=== PATIENT | female | born 1950 | race Caucasian/White ===

== ENCOUNTER → 2018-05-19 | Outpatient (CLI) | payer BC, MEDICARE ==
[~2018-05-19] MED LIST: GLIPIZIDE10 MG PO; MICARDIS20 MG PO; TRIAMTERENE PO; remicade
--- NOTE | 2018-05-19 12:46 | Diagnostic Imaging Report ---
TECHNIQUE: Magnetic resonance imaging of the RIGHT SHOULDER was performed WITHOUT injected contrast. Suboptimal ttfnwe-ia-eynfx ratio, likely secondary to body habitus. Motion artifact further limits sensitivity and specificity of the exam. HISTORY: Pain, fell, limited motion COMPARISON: None available. FINDINGS: MUSCLES AND TENDONS: Rotator Cuff: Tendons: Supraspinatus and Infraspinatus: Probable full-thickness tear, the high-grade to full-thickness component measures approximately 3.5 cm (ML) x 3.1 cm (AP). Teres Minor: Intact Subscapularis: Intrasubstance degeneration and distal low-grade partial-thickness tearing. Muscles: Diffuse muscle atrophy, most notably moderate of the supraspinatus and infraspinatus. Biceps Tendon: The long head of the biceps tendon is not visualized within the intertubercular groove, there may be a small residual stump of tissue attached to the glenoid tubercle. GLENOHUMERAL JOINT: Glenoid Labrum: Diffuse contour irregularity, most notably the superior labrum. Articular Cartilage: Low-grade erosion. Joint Fluid: Synovitis and moderate nonspecific effusion extending into the subacromial/subdeltoid bursa. ACROMIOCLAVICULAR JOINT: Moderate hypertrophic degenerative changes of the acromioclavicular joint. Synovitis and trace effusion. BONE: Remodeling of the undersurface of the acromion. Superior subluxation of the humeral head into the rotator cuff defect. The bone marrow signal is heterogeneous, compatible with red marrow conversion, no specific evidence of a focal bone marrow replacing abnormality. No acute fracture. Mild nonspecific bone marrow edema at the posterior aspect of the humeral head. SOFT TISSUES: Otherwise, unremarkable. IMPRESSION: 1. Chronic full-thickness supraspinatus and infraspinatus tear. 2. Tendinosis and partial-thickness tearing of the subscapularis tendon. 3. Suspected proximal rupture and distal retraction of the long head of the biceps tendon. 4. Degenerative changes of the acromioclavicular and glenohumeral joints, including degenerative tearing of the glenoid labrum. 5. Exam limitations, as detailed above. Signed by: Dr. Ed Yang D.O., M.M.M. on 05/19/2018 12:42 PM
== END ==
LOC: MRI 09:27
PROVIDERS: ATTEND Internal Medicine Rheumatology
DX: M25.511 Pain in right shoulder (principal)

== ENCOUNTER → 2019-02-28 | Day surgery (SDC) | payer MEDICARE, BC ==
[2019-02-22 12:29] LABS: BASOPHILS # (AUTO) 0.1 (0.0-0.1); BASOPHILS % 0.7 % (0.0-1.0); EOSINOPHILS # (AUTO) 0.2 (0.0-0.4); EOSINOPHILS % 2.8 % (0.0-6.0); HEMOGLOBIN 12.3 g/dL (12.0-16.0); LYMPHOCYTES # (AUTO) 3.3 (1.0-3.2); MEAN CORPUSCULAR HEMOGLOBIN 31.1 pg (28-32); MEAN CORPUSCULAR HGB CONC 32.4 g/dL (31-35); MEAN CORPUSCULAR VOLUME 96.2 fL (81-99); MONOCYTES # (AUTO) 0.5 (0.2-0.8); MONOCYTES % 6.5 % (4.4-11.3); NEUTROPHILS % 48.6 % (38.7-80.0); PLATELET COUNT 184 x10e3/uL (140-360); RED BLOOD COUNT 3.95 x10e6/uL (3.6-5.1)
[~2019-02-28] MED LIST changes: +ALPRAZOLAM1 MG PO; +CITALOPRAM HBR40 MG PO; +FOLIC ACID PO; +METFORMIN HCL850 MG PO; +METHOTREXATE2.5 MG PO; +PROPOFOL IV EMULSION 10 MG/ML 50 ML VIAL ONE; +QUESTRAN PACKET4 GM PO; +WARFARIN SODIUM5 MG PO; +ZOLPIDEM TARTRA10 MG PO
--- OUTSIDE RECORDS SUMMARY | 2019-02-28 10:26 | XMS REPORT ---
Author [facility] Address Unknown Phone Unavailable Care Team Providers Care Grass Cutter Name Role Phone WALTER LIN Unavailable Unavailable Payers Payer Name Policy Type Policy Number Effective Date Expiration Date Problems This patient has no known problems. Allergies, Adverse Reactions, Alerts Allergy Name Allergy Type Status Severity Reaction(s) Onset Date Inactive Date Treating Clinician Comments No Known Drug Allergies DA Active U 2018-08-19 00:00:00 No Known Drug Allergies DA Active U 2018-07-20 00:00:00 No Known Allergies DA Active U 2012-04-06 00:00:00 Medications This patient has no known medications. Results Test Description Test Time Test Comments Text Results Atomic Results Result Comments PROTHROMBIN TIME 2018-08-23 07:17:00 PROTHROMBIN TIME PATIENT (test code=PTP) 13 secs 10.1-12.5 INTERNATIONAL NORMAL RATIO (test code=INR) 1.15 <2.0 RECOMMENDED THERAPEUTIC RANGE FOR ORAL ANTICOAGULANTTREATMENT: CONDITION INRProphylaxis of venous thrombosis in 2.0 - 3.0 high-risk medical or surgical patientsTreatment of venous thrombosis 2.0 - 3.0Prevention of embolism 2.0 - 3.0Prevention of recurrent embolism, or 3.0 - 4.5 patients with mechanical prosthetic intravascular valves IS PATIENT ON ANTICOAGULANTS ? YLIST ANTICOAGULANT/ANTI PLT MEDICATION : Coumadi nHas Lab been notified if Patient is on Heparin Drip? NOIf Yes, order CBC, OCCUL T BLOOD, PT every other day NTHROMBOPLASTIN TIME [id number] 07:17:00* Test Item Value Reference Range Comments PTT ACTIVATED (test code=APTT) 28.9 secs 24.9-37.0 IS PATIENT ON ANTICOAGULANTS ? YLIST ANTICOAGULANT/ANTI PLT MEDICATION : Coumadi nHas Lab been notified if Patient is on Heparin Drip? NOIf Yes, order CBC, OCCUL T BLOOD, PT every other day [id number] 06:56:00* Test Item Value Reference Range Comments GLUBED (test code=GLUBED) 124 mg/dL 60-125 BASIC METABOLIC [id number] 13:11:00* Test Item Value Reference Range Comments SODIUM (test code=NA) 138 mmol/L 136-145 POTASSIUM (test code=K) 4.5 mmol/L 3.5-5.1 CHLORIDE (test code=CL) 101.0 mmol/L 98-107 CARBON DIOXIDE (test code=CO2) 27.0 mmol/L 21-32 GLUCOSE (test code=GLU) 75 mg/dL 70-110 BLOOD UREA NITROGEN (test code=BUN) 13 mg/dL 7-18 GLOMERULAR FILTRATION RATE (test code=GFR) 64.3 >60 Unit of measure: mL/min/1.73 [id number] Range:Healthy Adults >90 mL/min/1.73 m2 For Chronic Kidney Disease: Stage II Mild Decrease in GFR 60-90 Stage III Moderate Decrease in GFR 30-59 Stage IV Severe Decrease in GFR 15-29 Stage V Kidney Failure <15 CREATININE (test code=CREAT) 0.88 mg/dL 0.55-1.30 CALCIUM (test code=CA) 9.1 mg/dL 8.2-10.1 HGB [id number] 12:43:00* Test Item Value Reference Range Comments HEMOGLOBIN (test code=HGB) 12.5 g/dL 12-16 HEMATOCRIT (test code=HCT) 38.6 % 37-47 PROTHROMBIN [id number] 10:08:00* Test Item Value Reference Range Comments PROTHROMBIN TIME PATIENT (test code=PTP) 12.7 secs 10.1-12.5 INTERNATIONAL NORMAL RATIO (test code=INR) 1.12 <2.0 RECOMMENDED THERAPEUTIC RANGE FOR ORAL ANTICOAGULANTTREATMENT: CONDITION INRProphylaxis of venous thrombosis in 2.0 - 3.0 high-risk medical or surgical patientsTreatment of venous thrombosis 2.0 - 3.0Prevention of embolism 2.0 - 3.0Prevention of recurrent embolism, or 3.0 - 4.5 patients with mechanical prosthetic intravascular valves IS PATIENT ON ANTICOAGULANTS ? YLIST ANTICOAGULANT/ANTI PLT MEDICATION : OtherHa s Lab been notified if Patient is on Heparin Drip? NOIf Yes, order CBC, OCCULT B LOOD, PT every other day NTHROMBOPLASTIN TIME [id number] 10:08:00* Test Item Value Reference Range Comments PTT ACTIVATED (test code=APTT) 31.1 secs 24.9-37.0 IS PATIENT ON ANTICOAGULANTS ? YLIST ANTICOAGULANT/ANTI PLT MEDICATION : OtherHa s Lab been notified if Patient is on Heparin Drip? NOIf Yes, order CBC, OCCULT B LOOD, PT every other day NBASIC METABOLIC [id number] 13:21:00* Test Item Value Reference Range Comments SODIUM (test code=NA) 135 mmol/L 136-145 POTASSIUM (test code=K) 3.9 mmol/L 3.5-5.1 CHLORIDE (test code=CL) 99.0 mmol/L 98-107 CARBON DIOXIDE (test code=CO2) 23.0 mmol/L 21-32 GLUCOSE (test code=GLU) 220 mg/dL 70-110 BLOOD UREA NITROGEN (test code=BUN) 16 mg/dL 7-18 GLOMERULAR FILTRATION RATE (test code=GFR) 60.3 >60 Unit of measure: mL/min/1.73 [id number] Range:Healthy Adults >90 mL/min/1.73 m2 For Chronic Kidney Disease: Stage II Mild Decrease in GFR 60-90 Stage III Moderate Decrease in GFR 30-59 Stage IV Severe Decrease in GFR 15-29 Stage V Kidney Failure <15 CREATININE (test code=CREAT) 0.93 mg/dL 0.55-1.30 CALCIUM (test code=CA) 8.7 mg/dL 8.2-10.1 HGB [id number] 12:30:00* Test Item Value Reference Range Comments HEMOGLOBIN (test code=HGB) 12.3 g/dL 12-16 HEMATOCRIT (test code=HCT) 37.5 % 37-47 MRI SHOULDER RIGHT [id number] 12:20:00 [facility] [address] [place] [id number] Patient Name: GUERO MENDEZ MR #: [id number] : 1950 Age/Sex: 67/F Acc #: [id number] Req #: [id number] [facility] Physician: Ordered by: WALTER LIN Report #: [id number] Location: MRI Room/Bed: Procedure: [id number] MRI/MRI SHOULDER RIGHT WO Exam Date: 05/19/18 Exam Time: 10 15 REPORT STATUS: Signed TECHNIQ UE: Magnetic resonance imaging of the RIGHT SHOULDER was performed WITHOUT inj ected contrast. Suboptimal oymbrz-wp-ukrnh ratio, likely secondary to body habitus. Motion artifact further limits sensitivity and specificity of the exa m. HISTORY: Pain, fell, limited motion COMPARISON: None available. FINDINGS: MUSCLES AND TENDONS: Rotator Cuff: Tendons: Supraspinatus a nd Infraspinatus: Probable full-thickness tear, the high-grade to full-thickn ess component measures approximately 3.5 cm (ML) x 3.1 cm (AP). Teres Minor: Intact Subscapularis: Intrasubstance degeneration and distal low-grade par tial-thickness tearing. Muscles: Diffuse muscle atrophy, most notably modera te of the supraspinatus and infraspinatus. Biceps Tendon: The long he ad of the biceps tendon is not visualized within the intertubercular groove, t here may be a small residual stump of tissue attached to the glenoid tubercle. GLENOHUMERAL JOINT: Glenoid Labrum: Diffuse contour irregularity, most notably the superior labrum. Articular Cartilage: Low-grade erosion. Join t Fluid: Synovitis and moderate nonspecific effusion extending into the subacr omial/subdeltoid bursa. ACROMIOCLAVICULAR JOINT: Moderate hypertrophic degenerative changes of the acromioclavicular joint. Synovitis and trace effus ion. BONE: Remodeling of the undersurface of the acromion. Superior gaona bluxation of the humeral head into the rotator cuff defect. The bone marrow si gnal is heterogeneous, compatible with red marrow conversion, no specific evid ence of a focal bone marrow replacing abnormality. No acute fracture. Mild nonspecific bone marrow edema at the posterior aspect of the humeral head. SOFT TISSUES: Otherwise, unremarkable. IMPRESSION: 1. Chronic f ull-thickness supraspinatus and infraspinatus tear. 2. Tendinosis and partial -thickness tearing of the subscapularis tendon. 3. Suspected proximal rupture and distal retraction of the long head of the biceps tendon. 4. Degenerati ve changes of the acromioclavicular and glenohumeral joints, including degener ative tearing of the glenoid labrum. 5. Exam limitations, as detailed above. Signed by: Dr. Eliceo Yang D.O., M.M.M. on 05/19/2018 12:42 PM Dictat ed By: ELICEO YANG DO 1242 Transcribed By: WESTON on 05/19/18 1242 COPY TO: WALTER LIN
[2019-02-28 11:19] LABS: INR 1.04; PROTHROMBIN TIME 14.1 seconds (11.9-14.5)
[2019-02-28 11:20] LABS: PARTIAL THROMBOPLASTIN TIME 39.4 seconds (23.8-35.5)
[2019-02-28 13:00] VITALS: BP 173/81
== END | disposition home or self-care (01) ==
LOC: OR 10:18
PROVIDERS: ATTEND Internal Medicine Gastroenterology
DX: Z12.11 Encounter for screening for malignant neoplasm of colon (principal); K58.9 Irritable bowel syndrome, unspecified; K63.89 Other specified diseases of intestine; R19.7 Diarrhea, unspecified; K57.30 Diverticulosis of large intestine without perforation or abscess without bleeding; R14.0 Abdominal distension (gaseous); K64.0 First degree hemorrhoids; R03.0 Elevated blood-pressure reading, without diagnosis of hypertension; M06.9 Rheumatoid arthritis, unspecified; E03.9 Hypothyroidism, unspecified; E66.01 Morbid (severe) obesity due to excess calories; E11.9 Type 2 diabetes mellitus without complications; F32.9 Major depressive disorder, single episode, unspecified; F41.9 Anxiety disorder, unspecified; Z01.810 Encounter for preprocedural cardiovascular examination; Z01.812 Encounter for preprocedural laboratory examination; Z79.01 Long term (current) use of anticoagulants; Z79.84 Long term (current) use of oral hypoglycemic drugs; Z68.37 Body mass index [BMI] 37.0-37.9, adult; Z86.73 Personal history of transient ischemic attack (TIA), and cerebral infarction without residual deficits; Z80.0 Family history of malignant neoplasm of digestive organs
CPT/HCPCS: 36415 ×2; 45380; 82948; 85025; 85610; 85730; 88305; 93005; J2704

== ENCOUNTER → 2020-02-01 | Outpatient (CLI) | payer MEDICARE, BC ==
[~2020-02-01] MED LIST changes: -PROPOFOL IV EMULSION 10 MG/ML 50 ML VIAL ONE
== END ==
LOC: CT 14:53
PROVIDERS: ATTEND Specialist
DX: M25.561 Pain in right knee (principal)

== ENCOUNTER → 2020-08-30 | Day surgery (SDC) | payer MEDICARE, BC ==
[2020-08-27 13:05] LABS: BASOPHILS # (AUTO) 0.1 (0.0-0.1); BASOPHILS % 0.8 % (0.0-1.0); EOSINOPHILS # (AUTO) 0.5 (0.0-0.4); EOSINOPHILS % 5.9 % (0.0-6.0); HEMATOCRIT 37.2 % (34.2-44.1); HEMOGLOBIN 12.4 g/dL (12.0-16.0); LYMPHOCYTES # (AUTO) 3.8 (1.0-3.2); LYMPHOCYTES % 43.5 % (18.0-39.1); MEAN CORPUSCULAR HEMOGLOBIN 34.6 pg (28-32); MEAN CORPUSCULAR HGB CONC 33.3 g/dL (31-35); MEAN CORPUSCULAR VOLUME 103.9 fL (81-99); MONOCYTES # (AUTO) 0.5 (0.2-0.8); MONOCYTES % 5.6 % (4.4-11.3); NEUTROPHILS # (AUTO) 3.8 (2.1-6.9); NEUTROPHILS % 43.7 % (38.7-80.0); PLATELET COUNT 247 x10e3/uL (140-360); RED BLOOD COUNT 3.58 x10e6/uL (3.6-5.1); RED CELL DISTRIBUTION WIDTH 14.1 % (11.7-14.4)
[~2020-08-30] MED LIST changes: +ATENOLOL50 MG PO; +CETIRIZINE HCL10 MG PO; +FENTANYL CITRATE/PF 100MCG/2 ML INJ ONE; +IOPAMIDOL 200 MG/ML 20 ML VIAL IT ONE; +KLONOPIN0.5 MG PO; +LIDOCAINE HCL 1% 30ML-PF VIAL ONE; +LIDOCAINE HCL 2% LOCAL INJ 5 ML SDV VIAL INJ ONE; +LIPITOR10 MG PO; +METOPROLOL SUCC50 MG PO; +MIDAZOLAM HCL 2 MG/2 ML VIAL ONE; +NAMENDA5 MG PO; +NIFEDIPINE ER30 M1 PO; +POVIDONE IODINE 0.05% 0.05 % ML PO ONE; +PRAMIPEXOLE D0.25 MG PO; +PROPOFOL IV EMULSION 10 MG/ML 20 ML VIAL ONE; +RANEXA500 MG PO; +TRIAMCINOLONE ACET 40 MG/ML VIAL ONE; +ULTRAM 50MG50 MG PO; +VITAMIN B-121000 MC2 PO
[2020-08-30 08:10] VITALS: BP 114/64
== END | disposition home or self-care (01) ==
LOC: OR 15:12
PROVIDERS: ATTEND Physical Medicine & Rehabilitation Pain Medicine
DX: M47.896 Other spondylosis, lumbar region (principal); Z01.812 Encounter for preprocedural laboratory examination; Z01.810 Encounter for preprocedural cardiovascular examination; Z20.822 Contact with and (suspected) exposure to COVID-19; E11.9 Type 2 diabetes mellitus without complications; I25.10 Atherosclerotic heart disease of native coronary artery without angina pectoris; I10 Essential (primary) hypertension; Z95.2 Presence of prosthetic heart valve
CPT/HCPCS: 36415 ×2; 64493; 64494; 64495; 77003; 82948; 85025; 93005; J2001 ×2; J2250; J2704; J3010; J3301; Q9967; U0002

== ENCOUNTER → 2020-10-11 | Day surgery (SDC) | payer MEDICARE, BC ==
[~2020-10-11] MED LIST changes: -FENTANYL CITRATE/PF 100MCG/2 ML INJ ONE; +IOPAMIDOL 300 MG/ML 15ML VIAL IT ONE; -LIDOCAINE HCL 1% 30ML-PF VIAL ONE; -MIDAZOLAM HCL 2 MG/2 ML VIAL ONE; -POVIDONE IODINE 0.05% 0.05 % ML PO ONE; -PROPOFOL IV EMULSION 10 MG/ML 20 ML VIAL ONE
[2020-10-11 07:29] LABS: INR 1.63; PROTHROMBIN TIME 20.2 seconds (11.9-14.5)
[2020-10-11 07:30] LABS: PARTIAL THROMBOPLASTIN TIME 51.5 seconds (23.8-35.5)
[2020-10-11 08:25] VITALS: BP 147/56
== END | disposition home or self-care (01) ==
LOC: OR 05:54
PROVIDERS: ATTEND Physical Medicine & Rehabilitation Pain Medicine
DX: M17.11 Unilateral primary osteoarthritis, right knee (principal); M47.898 Other spondylosis, sacral and sacrococcygeal region; G47.33 Obstructive sleep apnea (adult) (pediatric); E11.9 Type 2 diabetes mellitus without complications; I25.10 Atherosclerotic heart disease of native coronary artery without angina pectoris; I10 Essential (primary) hypertension; Z01.812 Encounter for preprocedural laboratory examination; Z20.822 Contact with and (suspected) exposure to COVID-19; Z79.84 Long term (current) use of oral hypoglycemic drugs; Z79.01 Long term (current) use of anticoagulants; Z68.35 Body mass index [BMI] 35.0-35.9, adult; Z91.81 History of falling
CPT/HCPCS: 20610; 36415; 77002; 82948; 85610; 85730; J2001; J3301; Q9967 ×2; U0002

== ENCOUNTER 2021-02-05 14:04 | Inpatient (IN) | payer BC, MEDICARE ==
[~2021-02-05] VITALS: Ht 160 cm; Wt 67.6 kg
[~2021-02-05 14:04] MED LIST changes: -IOPAMIDOL 200 MG/ML 20 ML VIAL IT ONE; -IOPAMIDOL 300 MG/ML 15ML VIAL IT ONE; -LIDOCAINE HCL 2% LOCAL INJ 5 ML SDV VIAL INJ ONE; -TRIAMCINOLONE ACET 40 MG/ML VIAL ONE
[2021-02-05 15:20] LABS: BASOPHILS % 0.4 % (0.0-1.0); EOSINOPHILS % 0.2 % (0.0-6.0); HEMATOCRIT 27.1 % (34.2-44.1); HEMOGLOBIN 8.6 g/dL (12.0-16.0); LYMPHOCYTES # (AUTO) 1.7 (1.0-3.2); LYMPHOCYTES % 20.8 % (18.0-39.1); MEAN CORPUSCULAR HEMOGLOBIN 34.7 pg (28-32); MEAN CORPUSCULAR HGB CONC 31.7 g/dL (31-35); MEAN CORPUSCULAR VOLUME 109.3 fL (81-99); MONOCYTES # (AUTO) 0.8 (0.2-0.8); MONOCYTES % 9.3 % (4.4-11.3); NEUTROPHILS # (AUTO) 5.5 (2.1-6.9); NEUTROPHILS % 67.3 % (38.7-80.0); PLATELET COUNT 383 x10e3/uL (140-360); RED BLOOD COUNT 2.48 x10e6/uL (3.6-5.1); RED CELL DISTRIBUTION WIDTH 16.5 % (11.7-14.4)
[2021-02-05 15:26] LABS: CLARITY,URINE HAZY (CLEAR); COLOR,URINE BROWN (YELLOW); KETONES,URINE 2+ (NEGATIVE); LEUKOCYTE ESTERASE ,URINE MODERATE (NEGATIVE); NITRITE,URINE POSITIVE (NEGATIVE); PROTEIN,URINE DIPSTICK 1+ (NEGATIVE); URINE UROBILINOGEN 0.2 mg/dL (0.2 - 1)
[2021-02-05 15:35] LABS: AMORPHOUS SEDIMENT,URINE MODERATE (FEW); BACTERIA,URINE MANY /HPF; EPITHELIAL CELLS,URINE FEW /LPF; WBC,URINE (MAN) 21-50 /HPF (0-5)
[2021-02-05 15:36] LABS: INR 3.21; PROTHROMBIN TIME 34.3 seconds (11.9-14.5)
[2021-02-05 15:42] LABS: ALBUMIN 2.6 g/dL (3.5-5.0); ALBUMIN/GLOBULIN RATIO 0.8 (0.8-2.0); ANION GAP 16.8 mmol/L (8-16); CALCIUM 7.9 mg/dL (8.4-10.2); CREATININE, SERUM 0.68 mg/dL (0.57-1.11); POTASSIUM 3.8 mmol/L (3.5-5.1)
[2021-02-05] MEDS ORDERED: CEFTRIAXONE 1 GM in SODIUM CHLORIDE 0.9% 50ML 50 ML IV ONE (16:00)
[2021-02-05] MEDS ORDERED: CEFTRIAXONE 500 MG VIAL IV ONE (16:00)
[2021-02-05 16:18] LABS: THYROID STIMULATING HORMONE 1.416 uIU/mL (0.350-4.940)
[2021-02-05 17:59] VITALS: BP 118/59
[2021-02-05 18:19] VITALS: BP 118/59
[2021-02-05] MEDS ORDERED: MEMANTINE HCL10 MG PO (19:56)
[2021-02-05] MEDS ORDERED: ATORVASTATIN CA20 MG PO (19:56)
[2021-02-05] MEDS ORDERED: TELMISARTAN80 MG PO (19:56)
[2021-02-05] MEDS ORDERED: WARFARIN SODIU2.5 MG PO (19:56)
[2021-02-05] MEDS ORDERED: CITALOPRAM HBR40 MG PO (19:56)
[2021-02-05] MEDS ORDERED: NIFEDIPINE ER90 MG PO (19:56)
[2021-02-05] MEDS ORDERED: XANAX0.5 MG PO (19:58)
[2021-02-05 20:00] VITALS: BP 127/50
[2021-02-05] MEDS ORDERED: CALCIUM CARBONATE 500 MG CHEWABLE TABS PO PRN (20:15)
[2021-02-05] MEDS: ATENOLOL 50 MG TAB PO SCH (20:34)
[2021-02-05] MEDS: ATORVASTATIN 20 MG TAB PO SCH (20:34)
[2021-02-05] MEDS: PRAMIPEXOLE DIHYDROCHLORIDE 0.25 MG TAB PO SCH (20:34)
[2021-02-05] MEDS: MEMANTINE 10 MG TAB PO SCH (20:34)
[2021-02-05] MEDS: ALPRAZOLAM 0.5 MG TAB PO SCH (20:35)
[2021-02-05 21:00] VITALS: BP 127/50
[2021-02-05] MEDS ORDERED: CITALOPRAM HYDROBROMIDE 20 MG TAB PO SCH (21:00)
[2021-02-05 23:54] VITALS: BP 122/59
[2021-02-06] VITALS (7 sets, daily range): BP systolic 103–124; BP diastolic 54–64
[2021-02-06] MEDS: MEMANTINE 10 MG TAB PO SCH ×2 (10:00→20:42)
[2021-02-06] MEDS: CITALOPRAM HYDROBROMIDE 20 MG TAB PO SCH (10:00)
[2021-02-06 10:31] LABS: THYROID STIMULATING HORMONE 1.792 uIU/mL (0.350-4.940)
[2021-02-06] MEDS ORDERED: SODIUM CHLORIDE 0.9% 50ML 50 ML ONE (10:35)
[2021-02-06] MEDS ORDERED: IOPAMIDOL 370 MG/ML 200 ML INFUS..BTL INJ ONE (10:35)
[2021-02-06] MEDS: ACETAMINOPHEN 325 MG TAB PO PRN ×2 (13:50→20:43)
[2021-02-06] MEDS ORDERED: SODIUM CHLORIDE 0.9% 250ML 250 ML ONE (16:32)
[2021-02-06] MEDS: CEFTRIAXONE 1 GM in SODIUM CHLORIDE 0.9% 50ML 50 ML IV SCH (17:25)
[2021-02-06] MEDS: PRAMIPEXOLE DIHYDROCHLORIDE 0.25 MG TAB PO SCH (20:42)
[2021-02-06] MEDS: ATORVASTATIN 20 MG TAB PO SCH (20:42)
[2021-02-06] MEDS: MIRTAZAPINE 15 MG TAB PO SCH (20:42)
[2021-02-06] MEDS: ATENOLOL 50 MG TAB PO SCH (20:43)
[2021-02-06] MEDS: ALPRAZOLAM 0.5 MG TAB PO SCH (20:43)
[2021-02-07] VITALS: BP 98/54
[2021-02-07 05:19] VITALS: BP 131/56
[2021-02-07 06:25] LABS: BASOPHILS % 0.6 % (0.0-1.0); EOSINOPHILS # (AUTO) 0.1 (0.0-0.4); EOSINOPHILS % 1.6 % (0.0-6.0); HEMOGLOBIN 8.1 g/dL (12.0-16.0); LYMPHOCYTES # (AUTO) 2.1 (1.0-3.2); LYMPHOCYTES % 43.9 % (18.0-39.1); MEAN CORPUSCULAR HEMOGLOBIN 34.6 pg (28-32); MEAN CORPUSCULAR HGB CONC 32.4 g/dL (31-35); MEAN CORPUSCULAR VOLUME 106.8 fL (81-99); MONOCYTES # (AUTO) 0.7 (0.2-0.8); MONOCYTES % 13.6 % (4.4-11.3); NEUTROPHILS # (AUTO) 1.7 (2.1-6.9); NEUTROPHILS % 35.8 % (38.7-80.0); PLATELET COUNT 295 x10e3/uL (140-360); RED BLOOD COUNT 2.34 x10e6/uL (3.6-5.1); RED CELL DISTRIBUTION WIDTH 16.8 % (11.7-14.4)
[2021-02-07 06:27] LABS: INR 1.81; PROTHROMBIN TIME 22.4 seconds (11.9-14.5)
[2021-02-07 06:48] LABS: ANION GAP 14.1 mmol/L (8-16); CALCIUM 8.7 mg/dL (8.4-10.2); CREATININE, SERUM 0.57 mg/dL (0.57-1.11); POTASSIUM 3.1 mmol/L (3.5-5.1)
[2021-02-07 08:55] VITALS: BP 115/61
[2021-02-07] MEDS ORDERED: POTASSIUM CHLORIDE 10MEQ EA PO ONE (09:30)
[2021-02-07] MEDS: CITALOPRAM HYDROBROMIDE 20 MG TAB PO SCH (09:42)
[2021-02-07] MEDS: MEMANTINE 10 MG TAB PO SCH ×2 (09:42→20:55)
[2021-02-07] MEDS: PANTOPRAZOLE SOD 40 MG TABEC PO SCH (09:42)
[2021-02-07] MEDS ORDERED: ONDANSETRON HCL INJ 2MG/ML 2ML 2 MG/ML VIAL IV PRN (10:00)
[2021-02-07] MEDS: ACETAMINOPHEN 325 MG TAB PO PRN (10:56)
[2021-02-07] MEDS: IRON SUCROSE 100 MG in SODIUM CHLORIDE 0.9% 100 ML 100 ML IV SCH (11:01)
[2021-02-07 13:48] VITALS: BP 108/55
[2021-02-07] MEDS: CEFTRIAXONE 1 GM in SODIUM CHLORIDE 0.9% 50ML 50 ML IV SCH (16:43)
[2021-02-07 16:52] VITALS: BP 96/58
[2021-02-07 20:00] VITALS: BP 118/58
[2021-02-07] MEDS: ALPRAZOLAM 0.5 MG TAB PO SCH (20:55)
[2021-02-07] MEDS: PRAMIPEXOLE DIHYDROCHLORIDE 0.25 MG TAB PO SCH (20:55)
[2021-02-07] MEDS: ATENOLOL 50 MG TAB PO SCH (20:55)
[2021-02-07] MEDS: ATORVASTATIN 20 MG TAB PO SCH (20:55)
[2021-02-07] MEDS: MIRTAZAPINE 15 MG TAB PO SCH (20:55)
[2021-02-07] MEDS: ENOXAPARIN SOD INJ 60 MG/0.6 ML SYR SC SCH (20:57)
[2021-02-08] VITALS (8 sets, daily range): BP systolic 99–127; BP diastolic 52–59
[2021-02-08] MEDS: CITALOPRAM HYDROBROMIDE 20 MG TAB PO SCH (08:42)
[2021-02-08] MEDS: MEMANTINE 10 MG TAB PO SCH ×2 (08:42→21:03)
[2021-02-08] MEDS: ENOXAPARIN SOD INJ 60 MG/0.6 ML SYR SC SCH ×2 (08:42→21:03)
[2021-02-08] MEDS: PANTOPRAZOLE SOD 40 MG TABEC PO SCH (08:42)
[2021-02-08 11:15] LABS: BASOPHILS % 0.8 % (0.0-1.0); EOSINOPHILS # (AUTO) 0.1 (0.0-0.4); EOSINOPHILS % 1.5 % (0.0-6.0); HEMATOCRIT 23.3 % (34.2-44.1); HEMOGLOBIN 7.4 g/dL (12.0-16.0); LYMPHOCYTES # (AUTO) 1.9 (1.0-3.2); LYMPHOCYTES % 39.5 % (18.0-39.1); MEAN CORPUSCULAR HEMOGLOBIN 34.7 pg (28-32); MEAN CORPUSCULAR HGB CONC 31.8 g/dL (31-35); MEAN CORPUSCULAR VOLUME 109.4 fL (81-99); MONOCYTES # (AUTO) 0.7 (0.2-0.8); MONOCYTES % 14.2 % (4.4-11.3); NEUTROPHILS # (AUTO) 1.8 (2.1-6.9); NEUTROPHILS % 37.1 % (38.7-80.0); PLATELET COUNT 288 x10e3/uL (140-360); RED BLOOD COUNT 2.13 x10e6/uL (3.6-5.1); RED CELL DISTRIBUTION WIDTH 17.6 % (11.7-14.4)
[2021-02-08] MEDS: IRON SUCROSE 100 MG in SODIUM CHLORIDE 0.9% 100 ML 100 ML IV SCH (11:27)
[2021-02-08 11:32] LABS: ANION GAP 13.3 mmol/L (8-16); CALCIUM 7.7 mg/dL (8.4-10.2); CREATININE, SERUM 0.68 mg/dL (0.57-1.11); POTASSIUM 3.3 mmol/L (3.5-5.1)
[2021-02-08] MEDS: LORATADINE/PSEUDOEPHEDRINE 24 HR SR TAB PO SCH (12:29)
[2021-02-08] MEDS: FLUTICASONE PROPIONATE NASAL SPRAY NS SCH ×2 (12:29→16:14)
[2021-02-08] MEDS: CEFTRIAXONE 1 GM in SODIUM CHLORIDE 0.9% 50ML 50 ML IV SCH (16:14)
[2021-02-08] MEDS: MONTELUKAST SODIUM 10 MG TAB PO SCH (21:00)
[2021-02-08] MEDS: PRAMIPEXOLE DIHYDROCHLORIDE 0.25 MG TAB PO SCH (21:01)
[2021-02-08] MEDS: ATORVASTATIN 20 MG TAB PO SCH (21:01)
[2021-02-08] MEDS: MIRTAZAPINE 15 MG TAB PO SCH (21:02)
[2021-02-08] MEDS: ALPRAZOLAM 0.5 MG TAB PO SCH (21:02)
[2021-02-08] MEDS: ATENOLOL 50 MG TAB PO SCH (21:02)
[2021-02-09] VITALS: BP 102/81
[2021-02-09 04:00] VITALS: BP 104/76
[2021-02-09 06:03] LABS: BASOPHILS % 0.5 % (0.0-1.0); EOSINOPHILS # (AUTO) 0.1 (0.0-0.4); EOSINOPHILS % 1.3 % (0.0-6.0); HEMOGLOBIN 7.3 g/dL (12.0-16.0); LYMPHOCYTES # (AUTO) 2.7 (1.0-3.2); MEAN CORPUSCULAR HEMOGLOBIN 34.4 pg (28-32); MEAN CORPUSCULAR HGB CONC 32.3 g/dL (31-35); MEAN CORPUSCULAR VOLUME 106.6 fL (81-99); MONOCYTES # (AUTO) 0.7 (0.2-0.8); MONOCYTES % 12.7 % (4.4-11.3); NEUTROPHILS # (AUTO) 1.7 (2.1-6.9); NEUTROPHILS % 31.5 % (38.7-80.0); PLATELET COUNT 234 x10e3/uL (140-360); RED BLOOD COUNT 2.12 x10e6/uL (3.6-5.1); RED CELL DISTRIBUTION WIDTH 17.4 % (11.7-14.4)
[2021-02-09 06:15] LABS: HEMATOCRIT 22.6 % (34.2-44.1)
[2021-02-09 06:25] LABS: ANION GAP 13.4 mmol/L (8-16); CALCIUM 7.5 mg/dL (8.4-10.2); CREATININE, SERUM 0.58 mg/dL (0.57-1.11); POTASSIUM 3.4 mmol/L (3.5-5.1)
[2021-02-09 08:10] VITALS: BP 119/63
[2021-02-09] MEDS: PANTOPRAZOLE SOD 40 MG TABEC PO SCH ×2 (08:30→21:45)
[2021-02-09 09:00] LABS: EOSINOPHILS % (MANUAL) 2 % (0-7); LYMPHOCYTES % (MANUAL) 42 % (19-48); MONOCYTES % (MANUAL) 10 % (3.4-9.0); MYELOCYTES % (MANUAL) 2 % (0-0); NEUTROPHILS % (MANUAL) 44 % (40-74)
[2021-02-09] MEDS: FLUTICASONE PROPIONATE NASAL SPRAY NS SCH ×2 (09:00→17:49)
[2021-02-09 09:01] LABS: PLATELET ESTIMATE ADEQUATE; PLATELET MORPHOLOGY COMMENT NORMAL; RBC MORPHOLOGY COMMENT NORMAL
[2021-02-09] MEDS: MEMANTINE 10 MG TAB PO SCH ×2 (09:08→21:45)
[2021-02-09] MEDS: ENOXAPARIN SOD INJ 60 MG/0.6 ML SYR SC SCH ×2 (09:08→21:45)
[2021-02-09] MEDS: CITALOPRAM HYDROBROMIDE 20 MG TAB PO SCH (09:08)
[2021-02-09] MEDS: LORATADINE/PSEUDOEPHEDRINE 24 HR SR TAB PO SCH (09:08)
[2021-02-09] MEDS ORDERED: POTASSIUM CHLORIDE 10MEQ EA PO NR ×2 (10:00→15:30)
[2021-02-09] MEDS: IRON SUCROSE 100 MG in SODIUM CHLORIDE 0.9% 100 ML 100 ML IV SCH (12:32)
[2021-02-09] MEDS: CEFTRIAXONE 1 GM in SODIUM CHLORIDE 0.9% 50ML 50 ML IV SCH (16:13)
[2021-02-09] MEDS ORDERED: BISACODYL 5 MG TAB EC PO ONE (16:30)
[2021-02-09 20:00] VITALS: BP 119/63
[2021-02-09 20:30] VITALS: BP 101/84
[2021-02-09] MEDS: ATENOLOL 50 MG TAB PO SCH (21:45)
[2021-02-09] MEDS: ALPRAZOLAM 0.5 MG TAB PO SCH (21:45)
[2021-02-09] MEDS: MONTELUKAST SODIUM 10 MG TAB PO SCH (21:45)
[2021-02-09] MEDS: PRAMIPEXOLE DIHYDROCHLORIDE 0.25 MG TAB PO SCH (21:45)
[2021-02-09] MEDS: ATORVASTATIN 20 MG TAB PO SCH (21:45)
[2021-02-09] MEDS: MIRTAZAPINE 15 MG TAB PO SCH (21:45)
[2021-02-10] VITALS: BP 109/61
[2021-02-10 04:00] VITALS: BP 108/76
[2021-02-10 08:02] VITALS: BP 130/52
[2021-02-10] MEDS: CITALOPRAM HYDROBROMIDE 20 MG TAB PO SCH (09:08)
[2021-02-10] MEDS: LORATADINE/PSEUDOEPHEDRINE 24 HR SR TAB PO SCH (09:08)
[2021-02-10] MEDS: FLUTICASONE PROPIONATE NASAL SPRAY NS SCH ×2 (09:08→18:01)
[2021-02-10] MEDS: MEMANTINE 10 MG TAB PO SCH ×2 (09:08→21:24)
[2021-02-10] MEDS: ENOXAPARIN SOD INJ 60 MG/0.6 ML SYR SC SCH (09:08)
[2021-02-10 09:18] LABS: BASOPHILS # (AUTO) 0.1 (0.0-0.1); BASOPHILS % 1.1 % (0.0-1.0); EOSINOPHILS # (AUTO) 0.1 (0.0-0.4); EOSINOPHILS % 2.7 % (0.0-6.0); HEMATOCRIT 24.8 % (34.2-44.1); HEMOGLOBIN 7.4 g/dL (12.0-16.0); LYMPHOCYTES # (AUTO) 1.6 (1.0-3.2); LYMPHOCYTES % 35.1 % (18.0-39.1); MEAN CORPUSCULAR HEMOGLOBIN 34.3 pg (28-32); MEAN CORPUSCULAR HGB CONC 29.8 g/dL (31-35); MEAN CORPUSCULAR VOLUME 114.8 fL (81-99); MONOCYTES # (AUTO) 0.5 (0.2-0.8); MONOCYTES % 12.2 % (4.4-11.3); NEUTROPHILS # (AUTO) 1.9 (2.1-6.9); NEUTROPHILS % 42.1 % (38.7-80.0); PLATELET COUNT 179 x10e3/uL (140-360); RED BLOOD COUNT 2.16 x10e6/uL (3.6-5.1); RED CELL DISTRIBUTION WIDTH 18.5 % (11.7-14.4)
[2021-02-10] MEDS ORDERED: PEG (High)/E-LYTE SOLN 4,000 ML BTL PO ONE (09:30)
[2021-02-10 09:34] LABS: INR 1.24; PROTHROMBIN TIME 16.6 seconds (11.9-14.5)
[2021-02-10] MEDS ORDERED: PANTOPRAZOLE SOD 40 MG TABEC PO ONE (09:45)
[2021-02-10 09:48] LABS: ANION GAP 16.2 mmol/L (8-16); BLOOD UREA NITROGEN < 5 mg/dL (7-26); CALCIUM 7.6 mg/dL (8.4-10.2); CARBON DIOXIDE 19 mmol/L (22-29); CHLORIDE 111 mmol/L (98-107); EST GLOMERULAR FILTRATION RATE 99 ML/MIN (60-); GLUCOSE 105 mg/dL (74-118); POTASSIUM 4.2 mmol/L (3.5-5.1); SODIUM 142 mmol/L (136-145)
[2021-02-10 09:58] LABS: BUN/CREATININE RATIO 8 (6-25)
[2021-02-10] MEDS: CEFTRIAXONE 1 GM in SODIUM CHLORIDE 0.9% 50ML 50 ML IV SCH (16:08)
[2021-02-10 20:00] VITALS: BP 95/84
[2021-02-10] MEDS: ATENOLOL 50 MG TAB PO SCH (21:00)
[2021-02-10] MEDS: ATORVASTATIN 20 MG TAB PO SCH (21:24)
[2021-02-10] MEDS: MIRTAZAPINE 15 MG TAB PO SCH (21:24)
[2021-02-10] MEDS: ALPRAZOLAM 0.5 MG TAB PO SCH (21:24)
[2021-02-10] MEDS: PRAMIPEXOLE DIHYDROCHLORIDE 0.25 MG TAB PO SCH (21:24)
[2021-02-10] MEDS: MONTELUKAST SODIUM 10 MG TAB PO SCH (21:24)
[2021-02-11] VITALS (9 sets, daily range): BP systolic 114–145; BP diastolic 57–91
[2021-02-11 07:10] LABS: INR 1.17; PROTHROMBIN TIME 15.9 seconds (11.9-14.5)
[2021-02-11 07:17] LABS: ANION GAP 14.1 mmol/L (8-16); BLOOD UREA NITROGEN < 5 mg/dL (7-26); CALCIUM 7.1 mg/dL (8.4-10.2); CARBON DIOXIDE 22 mmol/L (22-29); CHLORIDE 109 mmol/L (98-107); CREATININE, SERUM 0.58 mg/dL (0.57-1.11); EST GLOMERULAR FILTRATION RATE 103 ML/MIN (60-); GLUCOSE 106 mg/dL (74-118); POTASSIUM 3.1 mmol/L (3.5-5.1); SODIUM 142 mmol/L (136-145)
[2021-02-11] MEDS: PANTOPRAZOLE SOD 40 MG TABEC PO SCH (07:30)
[2021-02-11 07:31] LABS: BUN/CREATININE RATIO 9 (6-25)
[2021-02-11] MEDS: MEMANTINE 10 MG TAB PO SCH ×2 (07:48→21:00)
[2021-02-11] MEDS: LORATADINE/PSEUDOEPHEDRINE 24 HR SR TAB PO SCH (07:48)
[2021-02-11] MEDS: CITALOPRAM HYDROBROMIDE 20 MG TAB PO SCH (07:48)
[2021-02-11] MEDS: FLUTICASONE PROPIONATE NASAL SPRAY NS SCH ×2 (08:44→18:26)
[2021-02-11 09:23] LABS: BASOPHILS % 0.9 % (0.0-1.0); EOSINOPHILS # (AUTO) 0.1 (0.0-0.4); EOSINOPHILS % 1.9 % (0.0-6.0); LYMPHOCYTES # (AUTO) 2.1 (1.0-3.2); LYMPHOCYTES % 44.9 % (18.0-39.1); MEAN CORPUSCULAR HEMOGLOBIN 34.8 pg (28-32); MEAN CORPUSCULAR HGB CONC 31.7 g/dL (31-35); MONOCYTES # (AUTO) 0.6 (0.2-0.8); NEUTROPHILS # (AUTO) 1.7 (2.1-6.9); NEUTROPHILS % 35.8 % (38.7-80.0); PLATELET COUNT 229 x10e3/uL (140-360); RED BLOOD COUNT 2.01 x10e6/uL (3.6-5.1); RED CELL DISTRIBUTION WIDTH 18.8 % (11.7-14.4)
[2021-02-11 09:48] LABS: HEMATOCRIT 22.1 % (34.2-44.1)
[2021-02-11] MEDS ORDERED: POTASSIUM CHLORIDE 20MEQ/100ML 100 ML IV ONE (10:00)
[2021-02-11] MEDS ORDERED: POTASSIUM CHLORIDE 10MEQ EA PO ONE (10:00)
[2021-02-11 12:33] LABS: BAND NEUTROPHILS % (MANUAL) 1 %; LYMPHOCYTES % (MANUAL) 39 % (19-48); MONOCYTES % (MANUAL) 14 % (3.4-9.0); MYELOCYTES % (MANUAL) 1 % (0-0); NEUTROPHILS % (MANUAL) 45 % (40-74); NUCLEATED RED BLOOD CELLS 3; PLATELET ESTIMATE ADEQUATE; PLATELET MORPHOLOGY COMMENT NORMAL; RBC MORPHOLOGY COMMENT NORMAL
[2021-02-11] MEDS: CEFTRIAXONE 1 GM in SODIUM CHLORIDE 0.9% 50ML 50 ML IV SCH (18:26)
[2021-02-11] MEDS: MIRTAZAPINE 15 MG TAB PO SCH (21:00)
[2021-02-11] MEDS: MONTELUKAST SODIUM 10 MG TAB PO SCH (21:00)
[2021-02-11] MEDS: ALPRAZOLAM 0.5 MG TAB PO SCH (21:00)
[2021-02-11] MEDS: PRAMIPEXOLE DIHYDROCHLORIDE 0.25 MG TAB PO SCH (21:00)
[2021-02-11] MEDS: ATORVASTATIN 20 MG TAB PO SCH (21:00)
[2021-02-11] MEDS: ATENOLOL 50 MG TAB PO SCH (21:00)
[2021-02-12] VITALS (9 sets, daily range): BP systolic 87–140; BP diastolic 42–74
[2021-02-12 06:21] LABS: BASOPHILS % 0.5 % (0.0-1.0); EOSINOPHILS # (AUTO) 0.1 (0.0-0.4); EOSINOPHILS % 2.8 % (0.0-6.0); HEMATOCRIT 22.5 % (34.2-44.1); LYMPHOCYTES # (AUTO) 2.1 (1.0-3.2); LYMPHOCYTES % 48.2 % (18.0-39.1); MEAN CORPUSCULAR HEMOGLOBIN 34.5 pg (28-32); MEAN CORPUSCULAR HGB CONC 31.1 g/dL (31-35); MEAN CORPUSCULAR VOLUME 110.8 fL (81-99); MONOCYTES # (AUTO) 0.5 (0.2-0.8); MONOCYTES % 11.9 % (4.4-11.3); NEUTROPHILS # (AUTO) 1.5 (2.1-6.9); NEUTROPHILS % 33.8 % (38.7-80.0); PLATELET COUNT 173 x10e3/uL (140-360); RED BLOOD COUNT 2.03 x10e6/uL (3.6-5.1); RED CELL DISTRIBUTION WIDTH 19.6 % (11.7-14.4)
[2021-02-12 07:14] LABS: PHOSPHORUS 2.1 MG/DL (2.3-4.7)
[2021-02-12] MEDS: PANTOPRAZOLE SOD 40 MG TABEC PO SCH (07:23)
[2021-02-12 07:42] LABS: EOSINOPHILS % (MANUAL) 4 % (0-7); LYMPHOCYTES % (MANUAL) 38 % (19-48); METAMYELOCYTES % (MANUAL) 1 % (0-0); MONOCYTES % (MANUAL) 5 % (3.4-9.0); MYELOCYTES % (MANUAL) 1 % (0-0); NEUTROPHILS % (MANUAL) 50 % (40-74); PLATELET ESTIMATE ADEQUATE; PLATELET MORPHOLOGY COMMENT NORMAL; POLYCHROMASIA FEW; RBC MORPHOLOGY COMMENT ABNORMAL
[2021-02-12 07:43] LABS: ANISOCYTOSIS MODERATE; HYPOCHROMASIA SLIGHT
[2021-02-12] MEDS: CITALOPRAM HYDROBROMIDE 20 MG TAB PO SCH (07:55)
[2021-02-12] MEDS: MEMANTINE 10 MG TAB PO SCH ×2 (07:55→20:32)
[2021-02-12] MEDS: LORATADINE/PSEUDOEPHEDRINE 24 HR SR TAB PO SCH (07:55)
[2021-02-12 08:04] LABS: ANION GAP 14.5 mmol/L (8-16); BLOOD UREA NITROGEN < 5 mg/dL (7-26); CARBON DIOXIDE 22 mmol/L (22-29); CHLORIDE 110 mmol/L (98-107); CREATININE, SERUM 0.58 mg/dL (0.57-1.11); EST GLOMERULAR FILTRATION RATE 103 ML/MIN (60-); GLUCOSE 103 mg/dL (74-118); POTASSIUM 3.5 mmol/L (3.5-5.1); SODIUM 143 mmol/L (136-145)
[2021-02-12 08:10] LABS: BUN/CREATININE RATIO 9 (6-25)
[2021-02-12 08:11] LABS: CALCIUM 6.7 mg/dL (8.4-10.2)
[2021-02-12] MEDS: FLUTICASONE PROPIONATE NASAL SPRAY NS SCH ×2 (08:14→16:05)
[2021-02-12] MEDS ORDERED: FUROSEMIDE INJ 10 MG/ML 2 ML VIAL IV PRN (11:15)
[2021-02-12] MEDS ORDERED: SODIUM CHLORIDE 0.9% 250ML 250 ML IV ONE (11:15)
[2021-02-12] MEDS ORDERED: SODIUM CHLORIDE 0.9% 250ML 250 ML ONE (11:24)
[2021-02-12] MEDS ORDERED: POTASSIUM PHOSPHATE 20 MM in SODIUM CHLORIDE 0.9% 250ML 250 ML IV ONE (12:00)
[2021-02-12] MEDS ORDERED: MAGNESIUM SULFATE 2GM/50ML IV ONE (12:00)
[2021-02-12] MEDS ORDERED: CALCIUM GLUCONATE 10% INJ 4.65 MEQ in SODIUM CHLORIDE 0.9% 50ML 50 ML IV ONE (12:00)
[2021-02-12] MEDS ORDERED: POVIDONE IODINE 0.05% 0.05 % ML PO ONE (13:59)
[2021-02-12] MEDS ORDERED: PROPOFOL IV EMULSION 10 MG/ML 20 ML VIAL ONE (13:59)
[2021-02-12] MEDS: CEFTRIAXONE 1 GM in SODIUM CHLORIDE 0.9% 50ML 50 ML IV SCH (16:05)
[2021-02-12] MEDS: MIRTAZAPINE 15 MG TAB PO SCH (20:32)
[2021-02-12] MEDS: ATORVASTATIN 20 MG TAB PO SCH (20:32)
[2021-02-12] MEDS: PRAMIPEXOLE DIHYDROCHLORIDE 0.25 MG TAB PO SCH (20:32)
[2021-02-12] MEDS: MONTELUKAST SODIUM 10 MG TAB PO SCH (20:33)
[2021-02-12] MEDS: ATENOLOL 50 MG TAB PO SCH (20:33)
[2021-02-13] VITALS (8 sets, daily range): BP systolic 114–145; BP diastolic 53–70
[2021-02-13 06:09] LABS: MAGNESIUM 1.3 MG/DL (1.3-2.1); PHOSPHORUS 2.8 MG/DL (2.3-4.7)
[2021-02-13 06:09] LABS: CHLORIDE 108 mmol/L (98-107); POTASSIUM 3.5 mmol/L (3.5-5.1); SODIUM 142 mmol/L (136-145)
[2021-02-13 06:11] LABS: BASOPHILS % 0.7 % (0.0-1.0); EOSINOPHILS # (AUTO) 0.2 (0.0-0.4); EOSINOPHILS % 2.5 % (0.0-6.0); HEMATOCRIT 29.1 % (34.2-44.1); HEMOGLOBIN 9.3 g/dL (12.0-16.0); LYMPHOCYTES # (AUTO) 3.2 (1.0-3.2); LYMPHOCYTES % 53.4 % (18.0-39.1); MEAN CORPUSCULAR HEMOGLOBIN 32.7 pg (28-32); MEAN CORPUSCULAR VOLUME 102.5 fL (81-99); MONOCYTES # (AUTO) 0.7 (0.2-0.8); MONOCYTES % 11.6 % (4.4-11.3); NEUTROPHILS # (AUTO) 1.8 (2.1-6.9); NEUTROPHILS % 30.6 % (38.7-80.0); PLATELET COUNT 162 x10e3/uL (140-360); RED BLOOD COUNT 2.84 x10e6/uL (3.6-5.1); RED CELL DISTRIBUTION WIDTH 21.7 % (11.7-14.4)
[2021-02-13 06:47] LABS: ANION GAP 17.5 mmol/L (8-16); BLOOD UREA NITROGEN < 5 mg/dL (7-26); CARBON DIOXIDE 20 mmol/L (22-29); CREATININE, SERUM 0.62 mg/dL (0.57-1.11); EST GLOMERULAR FILTRATION RATE 95 ML/MIN (60-); GLUCOSE 102 mg/dL (74-118)
[2021-02-13 06:56] LABS: BUN/CREATININE RATIO 8 (6-25)
[2021-02-13 06:58] LABS: CALCIUM 6.9 mg/dL (8.4-10.2)
[2021-02-13] MEDS: CITALOPRAM HYDROBROMIDE 20 MG TAB PO SCH (08:32)
[2021-02-13] MEDS: LORATADINE/PSEUDOEPHEDRINE 24 HR SR TAB PO SCH (08:32)
[2021-02-13] MEDS: MEMANTINE 10 MG TAB PO SCH ×2 (08:32→20:07)
[2021-02-13] MEDS: PANTOPRAZOLE SOD 40 MG TABEC PO SCH (08:32)
[2021-02-13] MEDS: FLUTICASONE PROPIONATE NASAL SPRAY NS SCH ×2 (08:35→16:11)
[2021-02-13] MEDS ORDERED: MAGNESIUM SULFATE 2GM/50ML 50 ML IV ONE (09:00)
[2021-02-13] MEDS ORDERED: CALCIUM GLUCONATE 10% INJ 9.3 MEQ in SODIUM CHLORIDE 0.9% 100 ML 100 ML IV ONE (09:45)
[2021-02-13 09:47] LABS: ANISOCYTOSIS MODERATE; EOSINOPHILS % (MANUAL) 4 % (0-7); LYMPHOCYTES % (MANUAL) 43 % (19-48); MONOCYTES % (MANUAL) 9 % (3.4-9.0); NEUTROPHILS % (MANUAL) 36 % (40-74); PLATELET ESTIMATE ADEQUATE; PLATELET MORPHOLOGY COMMENT NORMAL; RBC MORPHOLOGY COMMENT ABNORMAL
[2021-02-13] MEDS: MAGNESIUM OXIDE 400 MG TAB PO SCH ×2 (09:47→16:11)
[2021-02-13] MEDS ORDERED: SODIUM CHLORIDE 0.9% 250ML 250 ML ONE (10:03)
[2021-02-13] MEDS: SUCRALFATE 1 GM TAB PO SCH ×3 (13:20→20:07)
[2021-02-13] MEDS: CEFTRIAXONE 1 GM in SODIUM CHLORIDE 0.9% 50ML 50 ML IV SCH (16:11)
[2021-02-13] MEDS: PRAMIPEXOLE DIHYDROCHLORIDE 0.25 MG TAB PO SCH (20:07)
[2021-02-13] MEDS: MIRTAZAPINE 15 MG TAB PO SCH (20:07)
[2021-02-13] MEDS: ATORVASTATIN 20 MG TAB PO SCH (20:07)
[2021-02-13] MEDS: MONTELUKAST SODIUM 10 MG TAB PO SCH (20:07)
[2021-02-13] MEDS: ATENOLOL 50 MG TAB PO SCH (20:09)
[2021-02-14] VITALS (9 sets, daily range): BP systolic 132–157; BP diastolic 62–88
[2021-02-14] MEDS: SUCRALFATE 1 GM TAB PO SCH ×4 (08:51→21:30)
[2021-02-14] MEDS: MAGNESIUM OXIDE 400 MG TAB PO SCH ×2 (08:52→16:31)
[2021-02-14] MEDS: FLUTICASONE PROPIONATE NASAL SPRAY NS SCH ×2 (08:52→15:50)
[2021-02-14] MEDS: LORATADINE/PSEUDOEPHEDRINE 24 HR SR TAB PO SCH (08:52)
[2021-02-14] MEDS: CITALOPRAM HYDROBROMIDE 20 MG TAB PO SCH (08:52)
[2021-02-14] MEDS: MEMANTINE 10 MG TAB PO SCH ×2 (08:52→21:30)
[2021-02-14] MEDS: ENOXAPARIN SOD INJ 60 MG/0.6 ML SYR SC SCH ×2 (08:57→16:31)
[2021-02-14] MEDS ORDERED: WARFARIN SOD 3 MG TAB PO ONE (09:00)
[2021-02-14] MEDS: Pantoprazole IV 40 MG in SODIUM CHLORIDE 0.9% 50ML 50 ML IV SCH ×3 (09:12→21:30)
[2021-02-14] MEDS ORDERED: ONDANSETRON HCL 4 MG ORAL DISINTEGRATING TAB PO PRN (12:00)
[2021-02-14] MEDS: CEFTRIAXONE 1 GM in SODIUM CHLORIDE 0.9% 50ML 50 ML IV SCH (16:31)
[2021-02-14] MEDS: MIRTAZAPINE 15 MG TAB PO SCH (21:30)
[2021-02-14] MEDS: ATENOLOL 50 MG TAB PO SCH (21:30)
[2021-02-14] MEDS: ATORVASTATIN 20 MG TAB PO SCH (21:30)
[2021-02-14] MEDS: PRAMIPEXOLE DIHYDROCHLORIDE 0.25 MG TAB PO SCH (21:30)
[2021-02-14] MEDS: MONTELUKAST SODIUM 10 MG TAB PO SCH (21:30)
[2021-02-15 00:17] VITALS: BP 144/56
[2021-02-15] MEDS: Pantoprazole IV 40 MG in SODIUM CHLORIDE 0.9% 50ML 50 ML IV SCH ×3 (02:40→10:35)
[2021-02-15 04:14] VITALS: BP 149/61
[2021-02-15 06:13] LABS: BASOPHILS % 0.7 % (0.0-1.0); EOSINOPHILS # (AUTO) 0.2 (0.0-0.4); EOSINOPHILS % 3.1 % (0.0-6.0); HEMATOCRIT 31.4 % (34.2-44.1); HEMOGLOBIN 9.8 g/dL (12.0-16.0); LYMPHOCYTES # (AUTO) 2.9 (1.0-3.2); LYMPHOCYTES % 50.3 % (18.0-39.1); MEAN CORPUSCULAR HEMOGLOBIN 33.1 pg (28-32); MEAN CORPUSCULAR HGB CONC 31.2 g/dL (31-35); MEAN CORPUSCULAR VOLUME 106.1 fL (81-99); MONOCYTES # (AUTO) 0.6 (0.2-0.8); MONOCYTES % 10.4 % (4.4-11.3); NEUTROPHILS % 34.5 % (38.7-80.0); PLATELET COUNT 154 x10e3/uL (140-360); RED BLOOD COUNT 2.96 x10e6/uL (3.6-5.1); RED CELL DISTRIBUTION WIDTH 21.5 % (11.7-14.4)
[2021-02-15 06:25] LABS: INR 1.13; PROTHROMBIN TIME 15.4 seconds (11.9-14.5)
[2021-02-15 06:40] LABS: ANION GAP 13.7 mmol/L (8-16); CALCIUM 7.1 mg/dL (8.4-10.2); CREATININE, SERUM 0.56 mg/dL (0.57-1.11); POTASSIUM 3.7 mmol/L (3.5-5.1)
[2021-02-15] MEDS: SUCRALFATE 1 GM TAB PO SCH (07:26)
[2021-02-15 08:22] VITALS: BP 160/66
[2021-02-15] MEDS: LORATADINE/PSEUDOEPHEDRINE 24 HR SR TAB PO SCH (08:47)
[2021-02-15] MEDS: FLUTICASONE PROPIONATE NASAL SPRAY NS SCH (08:47)
[2021-02-15] MEDS: CITALOPRAM HYDROBROMIDE 20 MG TAB PO SCH (08:47)
[2021-02-15] MEDS: MEMANTINE 10 MG TAB PO SCH (08:48)
[2021-02-15] MEDS: ENOXAPARIN SOD INJ 60 MG/0.6 ML SYR SC SCH (08:48)
[2021-02-15] MEDS: MAGNESIUM OXIDE 400 MG TAB PO SCH (08:48)
[2021-02-15 08:57] LABS: EOSINOPHILS % (MANUAL) 4 % (0-7); LYMPHOCYTES % (MANUAL) 37 % (19-48); MONOCYTES % (MANUAL) 10 % (3.4-9.0); NEUTROPHILS % (MANUAL) 46 % (40-74)
[2021-02-15 08:58] LABS: ANISOCYTOSIS MODERATE; PLATELET ESTIMATE ADEQUATE; PLATELET MORPHOLOGY COMMENT NORMAL; RBC MORPHOLOGY COMMENT ABNORMAL
[2021-02-15] MEDS ORDERED: WARFARIN SOD 2 MG TAB PO ONE (09:30)
[2021-02-15 10:35] VITALS: BP 160/66
== END 2021-02-15 11:15 | disposition home or self-care (01) | DRG 380 ==
LOC: ER 14:12 → ERHOLD 16:35 → MED/SURG3 17:49
PROVIDERS: ADMIT Internal Medicine; ATTEND Internal Medicine
PROC: 0DB38ZX Excision of Lower Esophagus, Via Natural or Artificial Opening Endoscopic, Diagnostic (ICD-10-PCS; 2021-02-12)
PROC: 0DBN8ZZ Excision of Sigmoid Colon, Via Natural or Artificial Opening Endoscopic (ICD-10-PCS; 2021-02-12)
PROC: 30233N1 Transfusion of Nonautologous Red Blood Cells into Peripheral Vein, Percutaneous Approach (ICD-10-PCS; 2021-02-12)
PROC: 0DB98ZX Excision of Duodenum, Via Natural or Artificial Opening Endoscopic, Diagnostic (ICD-10-PCS; principal; 2021-02-12 14:30)
PROC: 0DB78ZX Excision of Stomach, Pylorus, Via Natural or Artificial Opening Endoscopic, Diagnostic (ICD-10-PCS; 2021-02-12 14:30)
DX: K22.10 Ulcer of esophagus without bleeding (principal); E43 Unspecified severe protein-calorie malnutrition; N39.0 Urinary tract infection, site not specified; D62 Acute posthemorrhagic anemia; K44.9 Diaphragmatic hernia without obstruction or gangrene; K29.00 Acute gastritis without bleeding; R62.7 Adult failure to thrive; I10 Essential (primary) hypertension; E11.9 Type 2 diabetes mellitus without complications; I25.10 Atherosclerotic heart disease of native coronary artery without angina pectoris; E78.5 Hyperlipidemia, unspecified; D64.9 Anemia, unspecified; I48.91 Unspecified atrial fibrillation; Z95.1 Presence of aortocoronary bypass graft; Z91.81 History of falling; Z95.2 Presence of prosthetic heart valve; Z79.01 Long term (current) use of anticoagulants; K63.5 Polyp of colon; K57.30 Diverticulosis of large intestine without perforation or abscess without bleeding; K64.8 Other hemorrhoids; Z68.26 Body mass index [BMI] 26.0-26.9, adult; Z98.84 Bariatric surgery status; D50.9 Iron deficiency anemia, unspecified; B96.20 Unspecified Escherichia coli [E. coli] as the cause of diseases classified elsewhere
CPT/HCPCS: 36415; 43239; 45378; 70450; 71045; 74177; 80048; 80053; 81001; 82270; 82550; 82607; 82746; 82948; 83036; 83540; 83735; 84100; 84443; 84466; 84484; 85025; 85610; 86850; 86900; 86920; 87086; 87186; 88305; 88312; 93005; 94799; 97139; 99251; 99284; J0610; J0696; J1650; J1756; J2405; J3475; J3480; J7050; P9016; Q9967; U0002